=== PATIENT | male | born 1970 | race Caucasian/White ===

== ENCOUNTER 2016-08-06 21:09 | Emergency (ER) | payer MEDICARE, MEDICAID ==
[2016-08-06] MEDS ORDERED: PERCOCET 5MG/325MG TAB As Ordered ONE (22:13)
[2016-08-06] MEDS ORDERED: OXYCODONE/APAP 5MG/325MG(BULK) 1 TAB TAB As Ordered ONE (22:13)
--- NOTE | 2016-08-06 22:51 | EDDOCDS ---
Nurse's Notes [facility] Name: Kale Castano Age: 45 yrs Sex: Male : 1970 Arrival Date: 08/06/2016 Time: 21:09 Bed TR7 Private MD: Duarte Ackerman Diagnosis: Displaced comminuted fracture of shaft of humerus, left arm-Closed, slightly displaced, nv intact Presentation: 08/06 21:18 Presenting complaint: Patient states: pt fell on ice approx 40 min ago. Unable to move ttb left shoulder. Pt unable to lift arm. Adult Sepsis Screening: The patient does not have new or worsening altered mentation. Patient's respiratory rate is less than 22. Systolic blood pressure is greater than 100. Patient has a qSOFA score of 0- Negative Sepsis Screen. Suicide/Homicide risk assessment- the patient denies having any suicidal and/or homicidal ideations and does not present with any other emotional, behavioral or mental health complaints. 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 Transition of care: patient was not received from another setting of care. 21:18 Acuity: RADHA Level 3 ttb 21:18 Method Of Arrival: Walkin/Carried/Asstd ttb Triage Assessment: 21:20 General: Appears in no apparent distress, well nourished, well groomed, Behavior is ttb appropriate for age, cooperative, pleasant. Pain: Location: left shoulder Pain currently is 5 out of 10 on a pain scale. Pain does not radiate. Pain: Pain At worst was 10 out of 10 on a pain scale. HIV screening NA for this visit Offered previously. Neurological: Level of Consciousness is awake, alert. Cardiovascular: Chest pain is denied. Respiratory: No deficits noted. Airway is patent Denies cough, shortness of breath. GI: Denies nausea, vomiting, pain. Derm: Skin is normal. Musculoskeletal: Range of motion limited in left shoulder. Historical: - Allergies: PENICILLINS; SULFA (SULFONAMIDES); - Home Meds: 1. ibuprofen 600 mg Oral tab 1 tab every 4 hours (Last dose: 08/06/2016 19:00) - PMHx: none; - PSHx: none; - Social history: Smoking status: Patient states was never smoker of tobacco. Patient/guardian denies using alcohol, street drugs, No barriers to communication noted, The patient speaks fluent Lao, Speaks appropriately for age. - : The pt / caregiver states he / she is not on anticoagulants. Home medication list is obtained from the patient. - Exposure Risk Screening:: None identified. Vital Signs: 21:12 BP 90 / 62; Pulse 61; Resp 18 S; Temp 95.9(T); Pulse Ox 98% on R/A; Weight 79.83 kg gr2 (R); Height 6 ft. 1 in. (185.42 cm) (R); Pain 6/10; 21:12 Body Mass Index 23.22 (79.83 kg, 185.42 cm) gr2 Vitals: 21:12 Log In Time: August 06, 2016 at 21:12. gr2 ED Course: 21:11 Patient visited by Regino Busch. gr2 21:11 Duarte Ackerman PA is Private Physician. gr2 21:11 Patient moved to Waiting gr2 21:14 Patient visited by Regino Busch. gr2 21:14 Patient moved to Pre RCE gr2 21:19 Triage Initiated ttb 21:32 Patient moved to Triage 3 jmb 21:38 Patient moved to Radiology jmb 21:43 Patient moved to Triage 3 jmb 21:57 Patient visited by Shira Lafleur RN. ck1 22:00 Denise Parada PA-C is PHCP. ef1 22:00 Adria Bo DO is Attending Physician. ef1 22:00 Patient visited by Denise Parada PA-C. ef1 22:16 Skip Ley is Referral Physician. ef1 22:22 [facility] Payment Agreement was scanned into [employer] and attached to record. gjb 22:28 Patient moved to TR7 ttb Administered Medications: 22:16 Drug: oxyCODONE-acetaminophen 4 pack 1 packets [oxycodone-acetaminophen 5 mg-325 mg ttb tablet (1 tabs)] {Co-Signature: tatyana (Curtis Law RN).} Route: PO; 22:17 Drug: oxyCODONE-acetaminophen 1 tabs [oxycodone-acetaminophen 5 mg-325 mg tablet (1 ttb tabs)] Route: PO; Order Results: There are currently no results for this order. Outcome: 22:16 Discharge ordered by Provider. ef1 22:51 Patient left the ED. jmb Signatures: Shira Lafleur,RN RN ck1 Denise Parada PA-C PA-C ef1 Kaila Ramos RN RN b Regino Busch 2 Curtis Law RN RN Deb Corral RN MTDD
--- NOTE | 2016-08-06 22:51 | EDDOCDS ---
Physician Documentation [facility] Name: Kale Castano Age: 45 yrs Sex: Male : 1970 Arrival Date: 08/06/2016 Time: 21:09 Bed TR7 Private MD: Duarte Ackerman Disposition: 08/06/16 22:16 Discharged to Home/Self Care. Impression: Displaced comminuted fracture of shaft of humerus, left arm - Closed, slightly displaced, nv intact. - Condition is Stable. - Discharge Instructions: Humerus Fracture, Treated with Immobilization. - Prescriptions for Percocet 5- 325 mg Oral Tablet - take 1 tablet by ORAL route every 6 hours As needed MDD: 4 tabs; 20 tablet. - Medication Reconciliation, Local Pharmacy Hours form. - Follow up: Skip Ley; When: 1 - 2 days; Reason: Further diagnostic work-up, Recheck today's complaints, Continuance of care. Follow up: Emergency Department; Reason: Worsening of conditions. - Problem is new. - Symptoms have improved. Historical: - Allergies: PENICILLINS; SULFA (SULFONAMIDES); - Home Meds: 1. ibuprofen 600 mg Oral tab 1 tab every 4 hours (Last dose: 08/06/2016 19:00) - PMHx: none; - PSHx: none; - Social history: Smoking status: Patient states was never smoker of tobacco. Patient/guardian denies using alcohol, street drugs, No barriers to communication noted, The patient speaks fluent Honduran, Speaks appropriately for age. - : The pt / caregiver states he / she is not on anticoagulants. Home medication list is obtained from the patient. - Exposure Risk Screening:: None identified. Vital Signs: 08/06 21:12 BP 90 / 62; Pulse 61; Resp 18 S; Temp 95.9(T); Pulse Ox 98% on R/A; Weight 79.83 kg / gr2 176 lbs (R); Height 6 ft. 1 in. (185.42 cm) (R); Pain 6/10; 21:12 Body Mass Index 23.22 (79.83 kg, 185.42 cm) gr2 Procedures: 22:16 Fracture care/splinting: Splint applied to left shoulder using sling, applied by tech. ef1 Examined by me, post splint application: neurovascular intact, 2+ distal pulses palpable, brisk capillary refill noted, Patient tolerated well. MDM: 21:23 Shoulder, Complete Ordered. EDMS 22:11 Sling ordered. ef1 22:12 oxyCODONE-acetaminophen 5 mg-325 mg 1 tabs PO once ordered. ef1 22:12 oxyCODONE-acetaminophen 4 pack 5 mg-325 mg 1 packets PO once; Dispense with pt, take as ef1 per instruction on package ordered. 22:12 Ice Pack ordered. ef1 22:19 Financial registration complete. gjb 22:22 [facility] Payment Agreement was scanned into [employer] and attached to record. gjb Administered Medications: 22:16 Drug: oxyCODONE-acetaminophen 4 pack 1 packets [oxycodone-acetaminophen 5 mg-325 mg ttb tablet (1 tabs)] {Co-Signature: tatyana (Curtis Law RN).} Route: PO; 22:17 Drug: oxyCODONE-acetaminophen 1 tabs [oxycodone-acetaminophen 5 mg-325 mg tablet (1 ttb tabs)] Route: PO; Signatures: Dispatcher [employer] EDMS Denise Parada, OZZIEC PA-C ef1 Kaila Ramos RN RN ttb Becker, Joshua, RN RN jmb Beck, Gabriela gjb Joshua Becker RN jmb The chart was reviewed and I authenticate all verbal orders and agree with the evaluation and treatment provided.Attachments: 22:22 [facility] Payment Agreement gjandrew MTDD
--- NOTE | 2016-08-06 23:14 | REP ---
Clinical: Trauma. Technique: Internal rotation, external rotation, and Y view. Findings: There is a closed comminuted fracture involving the humeral neck/metaphyseal region with acute angulation. Acromioclavicular joint appears intact. Impression: Acute closed comminuted fracture of the proximal radial neck/metaphysis. Signed by Bill De Souza MD 08/06/2016 11:06 P
--- NOTE | 2016-08-08 23:52 | EDDOCDS ---
Nurse's Notes [facility] Name: Kale Castano Age: 45 yrs Sex: Male : 1970 Arrival Date: 08/06/2016 Time: 21:09 Bed TR7 Private MD: Duarte Ackerman Diagnosis: Displaced comminuted fracture of shaft of humerus, left arm-Closed, slightly displaced, nv intact Presentation: 08/06 21:18 Presenting complaint: Patient states: pt fell on ice approx 40 min ago. Unable to move ttb left shoulder. Pt unable to lift arm. Adult Sepsis Screening: The patient does not have new or worsening altered mentation. Patient's respiratory rate is less than 22. Systolic blood pressure is greater than 100. Patient has a qSOFA score of 0- Negative Sepsis Screen. Suicide/Homicide risk assessment- the patient denies having any suicidal and/or homicidal ideations and does not present with any other emotional, behavioral or mental health complaints. 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 Transition of care: patient was not received from another setting of care. 21:18 Acuity: RADHA Level 3 ttb 21:18 Method Of Arrival: Walkin/Carried/Asstd ttb Triage Assessment: 21:20 General: Appears in no apparent distress, well nourished, well groomed, Behavior is ttb appropriate for age, cooperative, pleasant. Pain: Location: left shoulder Pain currently is 5 out of 10 on a pain scale. Pain does not radiate. Pain: Pain At worst was 10 out of 10 on a pain scale. HIV screening NA for this visit Offered previously. Neurological: Level of Consciousness is awake, alert. Cardiovascular: Chest pain is denied. Respiratory: No deficits noted. Airway is patent Denies cough, shortness of breath. GI: Denies nausea, vomiting, pain. Derm: Skin is normal. Musculoskeletal: Range of motion limited in left shoulder. Historical: - Allergies: PENICILLINS; SULFA (SULFONAMIDES); - Home Meds: 1. ibuprofen 600 mg Oral tab 1 tab every 4 hours (Last dose: 08/06/2016 19:00) - PMHx: none; - PSHx: none; - Social history: Smoking status: Patient states was never smoker of tobacco. Patient/guardian denies using alcohol, street drugs, No barriers to communication noted, The patient speaks fluent Ethiopian, Speaks appropriately for age. - : The pt / caregiver states he / she is not on anticoagulants. Home medication list is obtained from the patient. - Exposure Risk Screening:: None identified. Vital Signs: 21:12 BP 90 / 62; Pulse 61; Resp 18 S; Temp 95.9(T); Pulse Ox 98% on R/A; Weight 79.83 kg gr2 (R); Height 6 ft. 1 in. (185.42 cm) (R); Pain 6/10; 21:12 Body Mass Index 23.22 (79.83 kg, 185.42 cm) gr2 Vitals: 21:12 Log In Time: August 06, 2016 at 21:12. gr2 ED Course: 21:11 Patient visited by Regino Busch. gr2 21:11 Duarte Ackerman PA is Private Physician. gr2 21:11 Patient moved to Waiting gr2 21:14 Patient visited by Regino Busch. gr2 21:14 Patient moved to Pre RCE gr2 21:19 Triage Initiated ttb 21:32 Patient moved to Triage 3 jmb 21:38 Patient moved to Radiology jmb 21:43 Patient moved to Triage 3 jmb 21:57 Patient visited by Shira Lafleur,HUMPHREY. ck1 22:00 Denise Parada PA-C is PHCP. ef1 22:00 Adria Bo DO is Attending Physician. ef1 22:00 Patient visited by Denise Parada PA-C. ef1 22:16 Skip Ley is Referral Physician. ef1 22:22 [facility] Payment Agreement was scanned into [employer] and attached to record. gjb 22:28 Patient moved to TR7 ttb 23:49 Shoulder, Complete Returned. EDMS 08/07 08:01 T-Sheet-- Draft Copy was scanned into [employer] and attached to record. gb Administered Medications: 08/06 22:16 Drug: oxyCODONE-acetaminophen 4 pack 1 packets [oxycodone-acetaminophen 5 mg-325 mg ttb tablet (1 tabs)] {Co-Signature: tatyana (Curtis Law RN).} Route: PO; 22:17 Drug: oxyCODONE-acetaminophen 1 tabs [oxycodone-acetaminophen 5 mg-325 mg tablet (1 ttb tabs)] Route: PO; Order Results: Radiology Order: Shoulder, Complete Test: Shoulder, Complete REASON FOR EXAMINATION: Trauma; Clinical: Trauma.; ; Technique: Internal rotation, external rotation, and Y view.; ; Findings:; There is a closed comminuted fracture involving the humeral neck/metaphyseal; region with acute angulation. Acromioclavicular joint appears intact.; ; Impression:; Acute closed comminuted fracture of the proximal radial neck/metaphysis.; ; ; Signed by; Bill De Souza MD 08/06/2016 11:06 P; Outcome: 22:16 Discharge ordered by Provider. ef1 22:51 Patient left the ED. tatyana Signatures: Dispatcher [employer] EDMS Cherry Mathews, Reg Reg Shira Farfan RN RN ck1 Denise Parada, PA-C PA-C ef1 Kaila Ramos RN RN ttRegino Garcia gr2 Curtis Law RN RN jmb Beck, Gabriela andrew joe Chart Complete [facility]
--- NOTE | 2016-08-08 23:52 | EDDOCDS ---
Physician Documentation [facility] Name: Kale Castano Age: 45 yrs Sex: Male : 1970 Arrival Date: 08/06/2016 Time: 21:09 Bed TR7 Private MD: Duarte Ackerman Disposition: 08/06/16 22:16 Discharged to Home/Self Care. Impression: Displaced comminuted fracture of shaft of humerus, left arm - Closed, slightly displaced, nv intact. - Condition is Stable. - Discharge Instructions: Humerus Fracture, Treated with Immobilization. - Prescriptions for Percocet 5- 325 mg Oral Tablet - take 1 tablet by ORAL route every 6 hours As needed MDD: 4 tabs; 20 tablet. - Medication Reconciliation, Local Pharmacy Hours form. - Follow up: Skip Ley; When: 1 - 2 days; Reason: Further diagnostic work-up, Recheck today's complaints, Continuance of care. Follow up: Emergency Department; Reason: Worsening of conditions. - Problem is new. - Symptoms have improved. Historical: - Allergies: PENICILLINS; SULFA (SULFONAMIDES); - Home Meds: 1. ibuprofen 600 mg Oral tab 1 tab every 4 hours (Last dose: 08/06/2016 19:00) - PMHx: none; - PSHx: none; - Social history: Smoking status: Patient states was never smoker of tobacco. Patient/guardian denies using alcohol, street drugs, No barriers to communication noted, The patient speaks fluent Mauritian, Speaks appropriately for age. - : The pt / caregiver states he / she is not on anticoagulants. Home medication list is obtained from the patient. - Exposure Risk Screening:: None identified. Vital Signs: 08/06 21:12 BP 90 / 62; Pulse 61; Resp 18 S; Temp 95.9(T); Pulse Ox 98% on R/A; Weight 79.83 kg / gr2 176 lbs (R); Height 6 ft. 1 in. (185.42 cm) (R); Pain 6/10; 21:12 Body Mass Index 23.22 (79.83 kg, 185.42 cm) gr2 Procedures: 22:16 Fracture care/splinting: Splint applied to left shoulder using sling, applied by tech. ef1 Examined by me, post splint application: neurovascular intact, 2+ distal pulses palpable, brisk capillary refill noted, Patient tolerated well. MDM: 21:23 Shoulder, Complete Ordered. EDMS 22:11 Sling ordered. ef1 22:12 oxyCODONE-acetaminophen 5 mg-325 mg 1 tabs PO once ordered. ef1 22:12 oxyCODONE-acetaminophen 4 pack 5 mg-325 mg 1 packets PO once; Dispense with pt, take as ef1 per instruction on package ordered. 22:12 Ice Pack ordered. ef1 22:19 Financial registration complete. gjb :22 [facility] Payment Agreement was scanned into [employer] and attached to record. b 08/07 08:01 T-Sheet-- Draft Copy was scanned into [employer] and attached to record. gb Administered Medications: 08/06 22:16 Drug: oxyCODONE-acetaminophen 4 pack 1 packets [oxycodone-acetaminophen 5 mg-325 mg ttb tablet (1 tabs)] {Co-Signature: tatyana (Curtis Law RN).} Route: PO; 22:17 Drug: oxyCODONE-acetaminophen 1 tabs [oxycodone-acetaminophen 5 mg-325 mg tablet (1 ttb tabs)] Route: PO; Signatures: Dispatcher [employer] EDMS Cherry Mathews, Andrés Reg gb Denise Parada, GYPSY PABushra ef1 Kaila Ramos, RN RN Curtis Pretty RN RN jmb Beck, Gabriela gjb Joshua Becker RN jmb The chart was reviewed and I authenticate all verbal orders and agree with the evaluation and treatment provided.Attachments: : [facility] Payment Agreement [facility] 08/07 08:01 T-Sheet-- Draft Copy gb Chart Complete MTDD
--- NOTE | 2016-08-08 23:52 | EDDOCDS ---
Physician Documentation [facility] Name: Kale Castaon Age: 45 yrs Sex: Male : 1970 Arrival Date: 08/06/2016 Time: 21:09 Bed TR7 Private MD: Duarte Ackerman Disposition: 08/06/16 22:16 Discharged to Home/Self Care. Impression: Displaced comminuted fracture of shaft of humerus, left arm - Closed, slightly displaced, nv intact. - Condition is Stable. - Discharge Instructions: Humerus Fracture, Treated with Immobilization. - Prescriptions for Percocet 5- 325 mg Oral Tablet - take 1 tablet by ORAL route every 6 hours As needed MDD: 4 tabs; 20 tablet. - Medication Reconciliation, Local Pharmacy Hours form. - Follow up: Skip Ley; When: 1 - 2 days; Reason: Further diagnostic work-up, Recheck today's complaints, Continuance of care. Follow up: Emergency Department; Reason: Worsening of conditions. - Problem is new. - Symptoms have improved. Historical: - Allergies: PENICILLINS; SULFA (SULFONAMIDES); - Home Meds: 1. ibuprofen 600 mg Oral tab 1 tab every 4 hours (Last dose: 08/06/2016 19:00) - PMHx: none; - PSHx: none; - Social history: Smoking status: Patient states was never smoker of tobacco. Patient/guardian denies using alcohol, street drugs, No barriers to communication noted, The patient speaks fluent [place] Ca[place] Islander, Speaks appropriately for age. - : The pt / caregiver states he / she is not on anticoagulants. Home medication list is obtained from the patient. - Exposure Risk Screening:: None identified. Vital Signs: 08/06 21:12 BP 90 / 62; Pulse 61; Resp 18 S; Temp 95.9(T); Pulse Ox 98% on R/A; Weight 79.83 kg / gr2 176 lbs (R); Height 6 ft. 1 in. (185.42 cm) (R); Pain 6/10; 21:12 Body Mass Index 23.22 (79.83 kg, 185.42 cm) gr2 Procedures: 22:16 Fracture care/splinting: Splint applied to left shoulder using sling, applied by tech. ef1 Examined by me, post splint application: neurovascular intact, 2+ distal pulses palpable, brisk capillary refill noted, Patient tolerated well. MDM: 21:23 Shoulder, Complete Ordered. EDMS 22:11 Sling ordered. ef1 22:12 oxyCODONE-acetaminophen 5 mg-325 mg 1 tabs PO once ordered. ef1 22:12 oxyCODONE-acetaminophen 4 pack 5 mg-325 mg 1 packets PO once; Dispense with pt, take as ef1 per instruction on package ordered. 22:12 Ice Pack ordered. ef1 22:19 Financial registration complete. gjb :22 [facility] Payment Agreement was scanned into [employer] and attached to record. b 08/07 08:01 T-Sheet-- Draft Copy was scanned into [employer] and attached to record. gb Administered Medications: 08/06 22:16 Drug: oxyCODONE-acetaminophen 4 pack 1 packets [oxycodone-acetaminophen 5 mg-325 mg ttb tablet (1 tabs)] {Co-Signature: tatyana (Curtis Law RN).} Route: PO; 22:17 Drug: oxyCODONE-acetaminophen 1 tabs [oxycodone-acetaminophen 5 mg-325 mg tablet (1 ttb tabs)] Route: PO; Signatures: Dispatcher [employer] EDMS Cherry Mathews, Andrés Reg gb Denise Parada, GYPSY PABushra ef1 Kaila Ramos, RN RN Curtis Pretty RN RN jmb Beck, Gabriela gjb Joshua Becker RN jmb The chart was reviewed and I authenticate all verbal orders and agree with the evaluation and treatment provided.Attachments: : [facility] Payment Agreement [facility] 08/07 08:01 T-Sheet-- Draft Copy gb Chart Complete MTDD
== END 2016-08-06 22:51 | disposition home or self-care (01) ==
LOC: M ED 21:09
DX: S52.132A Displaced fracture of neck of left radius, initial encounter for closed fracture (principal); M25.512 Pain in left shoulder; W01.0XXA Fall on same level from slipping, tripping and stumbling without subsequent striking against object, initial encounter; Y92.410 Unspecified street and highway as the place of occurrence of the external cause; Y93.89 Activity, other specified; Y99.8 Other external cause status; Z88.0 Allergy status to penicillin; Z88.2 Allergy status to sulfonamides

== ENCOUNTER 2016-11-01 21:00 | Emergency (ER) | payer MEDICARE, MEDICAID ==
[~2016-11-01] VITALS: Ht 185.4 cm; Wt 76.2 kg
[2016-11-01] MEDS ORDERED: GI COCKTAIL 50ML BTL(HYOSCYAMINE/MAALOX/LIDOCAINE VISCOUS)(1:3:1) PO ONE (23:15)
[2016-11-01 23:16] LABS: BASO # 0.1 K/mm3 (0.0-0.2); EOS # 0.4 K/mm3 (0.0-0.50); EOS % 3.7 % (0.0-3.0); LARGE UNSTAINED CELL # 0.2 K/mm3 (0.0-0.4); LARGE UNSTAINED CELL % 1.5 % (0.0-4.0); LYMPH # 2.4 K/mm3 (1.5-4.5); LYMPH % 22.2 % (24.0-44.0); MEAN CORPUSCULAR HEMOGLOBIN 30.9 pg (27.0-33.0); MEAN CORPUSCULAR HGB CONC 33.4 g/dl (32.0-36.5); MEAN CORPUSCULAR VOLUME 92.5 fl (80.0-96.0); MONO # 0.5 K/mm3 (0.0-0.8); MONO % 5.2 % (0.0-5.0); NEUTROPHILS # 6.7 K/mm3 (1.8-7.7); NEUTROPHILS % 66.4 % (36.0-66.0); PLATELET COUNT, AUTOMATED 291 k/mm3 (150-450); RED CELL DISTRIBUTION WIDTH 12.4 % (11.5-14.5); WHITE BLOOD COUNT 10.1 K/mm3 (4.0-10.0)
[2016-11-01 23:29] LABS: ANION GAP 7 MEQ/L (8-16); BLOOD UREA NITROGEN 23 MG/DL (7-18); CALCIUM LEVEL 8.6 MG/DL (8.5-10.1); CARBON DIOXIDE LEVEL 29 MEQ/L (21-32); CHLORIDE LEVEL 105 MEQ/L (98-107); CREATININE FOR GFR 1.02 MG/DL (0.70-1.30); GLOMERULAR FILTRATION RATE > 60.0 (>60); GLUCOSE, FASTING 120 MG/DL (70-105); POTASSIUM SERUM 3.4 MEQ/L (3.5-5.1); SODIUM LEVEL 141 MEQ/L (136-145)
[2016-11-02] MEDS ORDERED: NAPR500T PO (02:07)
[2016-11-02 02:18] VITALS: BP 108/76
--- NOTE | 2016-11-02 07:59 | REP ---
PA and lateral chest: Comparison is 08/22/2009. The lung vasquez are clear. The cardiac size is normal The jaxson, mediastinum, and bony thorax are unremarkable. Impression: Negative PA and lateral chest. Signed by Kirill Monroe MD 11/02/2016 07:51 A
--- NOTE | 2016-11-02 21:37 | ECGEPIP ---
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
== END 2016-11-02 02:27 | disposition home or self-care (01) ==
LOC: EDBD 21:00 → M ED 22:58
DX: R07.89 Other chest pain (principal); K21.9 Gastro-esophageal reflux disease without esophagitis; G47.33 Obstructive sleep apnea (adult) (pediatric); Z87.891 Personal history of nicotine dependence; Z88.0 Allergy status to penicillin; Z88.2 Allergy status to sulfonamides; F41.9 Anxiety disorder, unspecified; F32.9 Major depressive disorder, single episode, unspecified

== ENCOUNTER → 2016-11-19 | Outpatient (CLI) | payer MEDICARE, MEDICAID ==
[~2016-11-19] MED LIST: NAPR500T PO
[2016-11-19 15:24] LABS: ALBUMIN/GLOBULIN RATIO 1.21 (1.00-1.93); ALKALINE PHOSPHATASE 50 U/L (45-117); ALT/SGPT 24 U/L (12-78); ANION GAP 5 MEQ/L (8-16); AST/SGOT 14 U/L (15-37); BILIRUBIN,TOTAL 0.4 MG/DL (0.2-1.0); BLOOD UREA NITROGEN 17 MG/DL (7-18); CALCIUM LEVEL 9.1 MG/DL (8.5-10.1); CARBON DIOXIDE LEVEL 32 MEQ/L (21-32); CHLORIDE LEVEL 103 MEQ/L (98-107); CHOLESTEROL LEVEL 207 MG/DL (<200); CREATININE FOR GFR 0.93 MG/DL (0.70-1.30); GLOMERULAR FILTRATION RATE > 60.0 (>60); GLUCOSE, FASTING 89 MG/DL (70-105); POTASSIUM SERUM 4.8 MEQ/L (3.5-5.1); SODIUM LEVEL 140 MEQ/L (136-145); TOTAL PROTEIN 7.3 GM/DL (6.4-8.2); TRIGLYCERIDES LEVEL 161 MG/DL (<150)
== END ==
LOC: M LAB 14:17
PROVIDERS: ATTEND Nurse Practitioner Family
DX: E78.5 Hyperlipidemia, unspecified (principal)

== ENCOUNTER 2020-06-28 19:54 | Emergency (ER) | payer MEDICARE, MEDICAID ==
[~2020-06-28] VITALS: Ht 185.4 cm; Wt 79.8 kg
[~2020-06-28 19:54] MED LIST changes: +NAPR-837 PO; -NAPR500T PO
[2020-06-28] MEDS ORDERED: AZEL1SPR3 NS ×2 (20:14→21:14)
[2020-06-28 21:21] VITALS: BP 120/82
== END 2020-06-28 21:30 | disposition home or self-care (01) ==
LOC: M ED 19:54
DX: Z76.0 Encounter for issue of repeat prescription (principal); R05 Cough; F41.9 Anxiety disorder, unspecified; F33.9 Major depressive disorder, recurrent, unspecified; Z88.0 Allergy status to penicillin; Z88.2 Allergy status to sulfonamides; Z79.899 Other long term (current) drug therapy

== ENCOUNTER → 2021-05-01 | Outpatient (CLI) | payer MEDICARE, MEDICAID ==
[~2021-05-01] MED LIST changes: +AZEL1SPR3 NS
== END ==
LOC: M LABSMTC 10:08
PROVIDERS: ATTEND Anesthesiology
DX: Z01.812 Encounter for preprocedural laboratory examination (principal); Z20.822 Contact with and (suspected) exposure to COVID-19

== ENCOUNTER 2021-05-06 08:22 | Day surgery (SDC) | payer MEDICARE, MEDICAID ==
[~2021-05-06] VITALS: Ht 185.4 cm; Wt 76.7 kg
[~2021-05-06 08:22] MED LIST changes: +NAPR-849 PO; +NS 1,000 ML IV ONE
[2021-05-06] MEDS ORDERED: LIDOCAINE 2% 100MG/5ML SDV (FOR ANES.) As Ordered ONE (08:30)
[2021-05-06] MEDS ORDERED: propofoL 200 MG/20 ML VIAL As Ordered ONE ×2 (08:30→08:36)
--- NOTE | 2021-05-06 09:31 | ROOR ---
Patient Name: Kale Castano Procedure Date: 05/06/2021 9:00 AM Date of : 1970 Age: 50 Room: [facility] Gender: Male Note Status: Finalized Procedure: Colonoscopy Indications: Screening for colorectal malignant neoplasm Providers: Manjinder Brady MD Referring MD: Nkechi Bower NP Requesting Provider: Medicines: Monitored Anesthesia Care Complications: No immediate complications. Procedure: Pre-Anesthesia Assessment: - Prior to the procedure, a History and Physical was performed, and patient medications and allergies were reviewed. The patient is competent. The risks and benefits of the procedure and the sedation options and risks were discussed with the patient. All questions were answered and informed consent was obtained. Patient identification and proposed procedure were verified by the physician, the nurse and the rad tech in the endoscopy suite. Mental Status Examination: alert and oriented. Airway Examination: normal oropharyngeal airway and neck mobility. Respiratory Examination: clear to auscultation. CV Examination: normal. Prophylactic Antibiotics: The patient does not require prophylactic antibiotics. Prior Anticoagulants: The patient has taken no previous anticoagulant or antiplatelet agents. ASA Grade Assessment: II - A patient with mild systemic disease. After reviewing the risks and benefits, the patient was deemed in satisfactory condition to undergo the procedure. The anesthesia plan was to use monitored anesthesia care (MAC). Immediately prior to administration of medications, the patient was re-assessed for adequacy to receive sedatives. The heart rate, respiratory rate, oxygen saturations, blood pressure, adequacy of pulmonary ventilation, and response to care were monitored throughout the procedure. The physical status of the patient was re-assessed after the procedure. The Colonoscope was introduced through the anus and advanced to the terminal ileum, with identification of the appendiceal orifice and IC valve. The colonoscopy was performed without difficulty. The patient tolerated the procedure well. The quality of the bowel preparation was excellent. Findings: The perianal and digital rectal examinations were normal. The entire examined colon appeared normal on direct and retroflexion views. Impression: - The entire examined colon is normal on direct and retroflexion views. - No specimens collected. Recommendation: - Discharge patient to home (ambulatory). - Repeat colonoscopy in 10 years for screening purposes. Procedure Code(s): --- Professional --- 62099, Colonoscopy, flexible; diagnostic, including collection of specimen(s) by brushing or washing, when performed (separate procedure) Diagnosis Code(s): --- Professional --- Z12.11, Encounter for screening for malignant neoplasm of colon CPT copyright 2019 [employer]. All rights reserved. The codes documented in this report are preliminary and upon tag machine operator review may be revised to meet current compliance requirements. Manjinder Brady MD Manjinder Brady MD 05/06/2021 9:30:20 AM Electronically signed by Manjinder Brady MD Number of Addenda: 0 Note Initiated On: 05/06/2021 9:00 AM Estimated Blood Loss: Estimated blood loss: none.
[2021-05-06 09:50] VITALS: BP 115/72
== END 2021-05-06 10:11 | disposition home or self-care (01) ==
LOC: M OPP 08:22
PROVIDERS: ATTEND Surgery
DX: Z12.11 Encounter for screening for malignant neoplasm of colon (principal); Z88.0 Allergy status to penicillin; Z88.2 Allergy status to sulfonamides; Z87.891 Personal history of nicotine dependence

== ENCOUNTER → 2023-01-05 | Outpatient (REF) | payer MEDICARE, MEDICAID ==
[~2023-01-05] MED LIST changes: -NS 1,000 ML IV ONE
[2023-01-05 13:32] LABS: BASO # 0.2 10^3/uL (0.0-0.2); BASO % 2.4 % (0.0-1.0); EOS # 0.3 10^3/uL (0.0-0.5); HEMATOCRIT 43.4 % (42.0-52.0); HEMOGLOBIN 14.6 g/dl (13.5-17.5); LYMPH # 2.8 10^3/uL (1.5-5.0); LYMPH % 43.5 % (24.0-44.0); MEAN CORPUSCULAR HEMOGLOBIN 31.1 pg (27.0-33.0); MEAN CORPUSCULAR HGB CONC 33.6 g/dl (32.0-36.5); MEAN CORPUSCULAR VOLUME 92.5 fl (80.0-96.0); MONO # 0.6 10^3/uL (0.0-0.8); MONO % 8.7 % (2.0-8.0); NEUTROPHILS # 2.6 10^3/uL (1.5-8.5); NEUTROPHILS % 40.1 % (36.0-66.0); PLATELET COUNT, AUTOMATED 276 10^3/uL (150-450); RED BLOOD COUNT 4.69 10^6/uL (4.30-6.10); WHITE BLOOD COUNT 6.4 10^3/uL (4.0-10.0)
[2023-01-05 13:41] LABS: ALKALINE PHOSPHATASE 37 U/L (46-116); ALT/SGPT 10 U/L (7.0-40); AST/SGOT 10 U/L (<34); BILIRUBIN,TOTAL 1.1 MG/DL (0.3-1.2); BLOOD UREA NITROGEN 12 MG/DL (9-23); CALCIUM LEVEL 9.2 MG/DL (8.5-10.1); CARBON DIOXIDE LEVEL 27 MMOL/L (20-31); CHLORIDE LEVEL 106 MMOL/L (98-107); CHOLESTEROL LEVEL 180 MG/DL (<200); CHOLESTEROL RISK RATIO 4.19 (<5); CREATININE FOR GFR 1.06 MG/DL (0.70-1.30); GLOMERULAR FILTRATION RATE > 60.0 (>56); GLUCOSE, FASTING 80 MG/DL (60-100); HDL CHOLESTEROL 42.9 MG/DL (>40); LDL CHOLESTEROL 112.1 MG/DL (<100); NON-HDL-C 137.1 MG/DL; POTASSIUM SERUM 3.9 MMOL/L (3.5-5.1); SODIUM LEVEL 140 MMOL/L (136-145); TOTAL PROTEIN 6.9 G/DL (5.7-8.2); TRIGLYCERIDES LEVEL 125 MG/DL (<150)
[2023-01-05 13:53] LABS: HEMOGLOBIN A1c 5.2 % (4.0-6.0)
== END ==
LOC: M LAB REF 12:29
PROVIDERS: ATTEND Nurse Practitioner Family
DX: Z13.228 Encounter for screening for other metabolic disorders (principal); Z79.899 Other long term (current) drug therapy

== ENCOUNTER → 2024-01-18 | Outpatient (REF) | payer MEDICARE, MEDICAID ==
[2024-01-18 13:46] LABS: BASO # 0.1 10^3/uL (0.0-0.2); BASO % 1.8 % (0.0-1.0); EOS # 0.2 10^3/uL (0.0-0.5); EOS % 4.4 % (0.0-3.0); HEMOGLOBIN 14.9 g/dl (13.5-17.5); LYMPH # 2.8 10^3/uL (1.5-5.0); LYMPH % 50.3 % (24.0-44.0); MEAN CORPUSCULAR HEMOGLOBIN 31.1 pg (27.0-33.0); MEAN CORPUSCULAR HGB CONC 33.9 g/dl (32.0-36.5); MEAN CORPUSCULAR VOLUME 91.9 fl (80.0-96.0); MONO # 0.4 10^3/uL (0.0-0.8); MONO % 7.4 % (2.0-8.0); NEUTROPHILS % 35.7 % (36.0-66.0); PLATELET COUNT, AUTOMATED 270 10^3/uL (150-450); RED BLOOD COUNT 4.79 10^6/uL (4.30-6.10); WHITE BLOOD COUNT 5.5 10^3/uL (4.0-10.0)
[2024-01-18 13:48] LABS: ALBUMIN 4.1 G/DL (3.2-5.2); ALKALINE PHOSPHATASE 38 U/L (46-116); ALT/SGPT 12 U/L (7.0-40); AST/SGOT < 8 U/L (<34); BILIRUBIN,TOTAL 0.5 MG/DL (0.3-1.2); BLOOD UREA NITROGEN 12 MG/DL (9-23); CALCIUM LEVEL 9.4 MG/DL (8.5-10.1); CARBON DIOXIDE LEVEL 30 MMOL/L (20-31); CHLORIDE LEVEL 106 MMOL/L (98-107); CHOLESTEROL LEVEL 197 MG/DL (<200); CHOLESTEROL RISK RATIO 4.03 (<5); CREATININE FOR GFR 0.96 MG/DL (0.70-1.30); GLOMERULAR FILTRATION RATE > 60.0 (>56); GLUCOSE, FASTING 80 MG/DL (60-100); HDL CHOLESTEROL 48.8 MG/DL (>40); LDL CHOLESTEROL 128.6 MG/DL (<100); NON-HDL-C 148.2 MG/DL; POTASSIUM SERUM 4.7 MMOL/L (3.5-5.1); SODIUM LEVEL 142 MMOL/L (136-145); TOTAL PROTEIN 7.1 G/DL (5.7-8.2); TRIGLYCERIDES LEVEL 98 MG/DL (<150)
== END ==
LOC: M LAB REF 11:31
PROVIDERS: ATTEND Nurse Practitioner Family
DX: Z13.228 Encounter for screening for other metabolic disorders (principal); E78.00 Pure hypercholesterolemia, unspecified

== ENCOUNTER → 2024-06-20 | Outpatient (REF) | payer MEDICARE, MEDICAID ==
[2024-06-20 14:24] LABS: CHOLESTEROL RISK RATIO 5.21 (<5); HDL CHOLESTEROL 42.4 MG/DL (>40); LDL CHOLESTEROL 146.6 MG/DL (<100); NON-HDL-C 178.6 MG/DL
== END ==
LOC: M LAB REF 13:27
PROVIDERS: ATTEND Nurse Practitioner Family
DX: E78.5 Hyperlipidemia, unspecified (principal)

== ENCOUNTER 2024-10-05 19:39 | Emergency (ER) | payer MEDICARE, MEDICAID ==
[~2024-10-05] VITALS: Ht 185.4 cm; Wt 77.3 kg
[2024-10-05] MEDS ORDERED: ACET-907 PO (21:17)
[2024-10-05] MEDS ORDERED: IBUP-1022 PO (21:17)
[2024-10-05 21:31] VITALS: BP 137/78; TEMP 97.8; O2SAT 100
[2024-10-05] MEDS: IBUPROFEN 600MG TAB PO ONE (21:33)
[2024-10-05] MEDS: ACETAMINOPHEN 325 MG TAB PO ONE (21:33)
== END 2024-10-05 21:40 | disposition home or self-care (01) ==
LOC: M ED 19:39
DX: S42.254A Nondisplaced fracture of greater tuberosity of right humerus, initial encounter for closed fracture (principal); W00.0XXA Fall on same level due to ice and snow, initial encounter; F32.A Depression, unspecified; F41.9 Anxiety disorder, unspecified; Y92.410 Unspecified street and highway as the place of occurrence of the external cause; Y93.89 Activity, other specified; Y99.9 Unspecified external cause status; Z88.0 Allergy status to penicillin; Z88.2 Allergy status to sulfonamides

== ENCOUNTER → 2024-10-11 | Outpatient (CLI) | payer MEDICARE, MEDICAID ==
[~2024-10-11] MED LIST changes: +ACET-907 PO; +IBUP-1022 PO
== END ==
LOC: M SOG 07:47
PROVIDERS: ATTEND Orthopaedic Surgery
DX: S42.202A Unspecified fracture of upper end of left humerus, initial encounter for closed fracture (principal)

== ENCOUNTER → 2024-10-30 | Outpatient (REF) | payer MEDICARE, MEDICAID ==
[2024-10-30 15:30] LABS: ALBUMIN 4.3 G/DL (3.2-5.2); ALKALINE PHOSPHATASE 56 U/L (40-129); ALT/SGPT 30 U/L (7.0-40); AST/SGOT 20 U/L (<34); BILIRUBIN,TOTAL 0.8 MG/DL (0.3-1.2); BLOOD UREA NITROGEN 12 MG/DL (9-23); CALCIUM LEVEL 9.6 MG/DL (8.5-10.1); CARBON DIOXIDE LEVEL 28 MMOL/L (20-31); CHLORIDE LEVEL 100 MMOL/L (98-107); CHOLESTEROL LEVEL 142 MG/DL (<200); CHOLESTEROL RISK RATIO 3.08 (<5); GLOMERULAR FILTRATION RATE > 60.0 (>56); GLUCOSE, FASTING 77 MG/DL (60-100); HDL CHOLESTEROL 46.1 MG/DL (>40); LDL CHOLESTEROL 73.5 MG/DL (<100); NON-HDL-C 95.9 MG/DL; POTASSIUM SERUM 4.6 MMOL/L (3.5-5.1); SODIUM LEVEL 136 MMOL/L (136-145); TOTAL PROTEIN 7.4 G/DL (5.7-8.2); TRIGLYCERIDES LEVEL 112 MG/DL (<150)
== END ==
LOC: M LAB REF 14:05
PROVIDERS: ATTEND Nurse Practitioner Family
DX: E78.5 Hyperlipidemia, unspecified (principal)

== ENCOUNTER → 2024-11-08 | Outpatient (CLI) | payer MEDICARE, MEDICAID | LOC: M SOG 07:49 | PROVIDERS: ATTEND Physician Assistant | DX: S42.211D Unspecified displaced fracture of surgical neck of right humerus, subsequent encounter for fracture with routine healing (principal) ==

== ENCOUNTER → 2025-03-01 | Outpatient (REF) | payer MEDICARE, MEDICAID ==
[2025-03-01 13:08] LABS: ALT/SGPT 15 U/L (7.0-40); AST/SGOT 19 U/L (<34); CALCIUM LEVEL 9.2 MG/DL (8.5-10.1); CARBON DIOXIDE LEVEL 31 MMOL/L (20-31); CHLORIDE LEVEL 101 MMOL/L (98-107); CHOLESTEROL LEVEL 195 MG/DL (<200); CHOLESTEROL RISK RATIO 4.49 (<5); CREATININE FOR GFR 0.98 MG/DL (0.70-1.30); GLOMERULAR FILTRATION RATE > 90.0 (>56); LDL CHOLESTEROL 125.8 MG/DL (<100); NON-HDL-C 151.6 MG/DL; POTASSIUM SERUM 4.4 MMOL/L (3.5-5.1); SODIUM LEVEL 141 MMOL/L (136-145); TRIGLYCERIDES LEVEL 129 MG/DL (<150)
[2025-03-01 13:12] LABS: TOTAL 25(OH) VITAMIN D 54.9 NG/ML (20.0-100.0)
== END ==
LOC: M LAB REF 12:18
PROVIDERS: ATTEND Nurse Practitioner Family
DX: E55.9 Vitamin D deficiency, unspecified (principal); E78.5 Hyperlipidemia, unspecified

== ENCOUNTER → 2025-04-11 | Outpatient (CLI) | payer MEDICARE, MEDICAID ==
[~2025-04-11] MED LIST changes: -IBUP-1022 PO; +IBUP600T42 PO
== END ==
LOC: M SOG 06:51
PROVIDERS: ATTEND Orthopaedic Surgery
DX: Z53.9 Procedure and treatment not carried out, unspecified reason (principal)

== ENCOUNTER → 2025-05-23 | Outpatient (CLI) | payer MEDICARE, MEDICAID | LOC: M SOG 07:29 | PROVIDERS: ATTEND Orthopaedic Surgery | DX: M25.511 Pain in right shoulder (principal) ==